=== PATIENT | female | born 2000 | race Caucasian/White ===

== ENCOUNTER 2024-02-07 08:02 | Outpatient (CLI) | payer BC, SELFPAY ==
[2024-02-07 09:20] LABS: Hematocrit 33.4 % (37.0-47.0); Hemoglobin 11.4 g/dL (12.0-15.0)
[2024-02-07 09:31] LABS: Glucose 1 Hour PP 50gm Dose 102 mg/dL
[2024-02-07 10:12] LABS: HIV 1/2 Ab P24 Ag Result Negative (Negative)
[2024-02-07] MEDS: RHO(D) IMMUNE GLOBULIN 300 MCG/2 ML SYRINGE IM (17:30)
== END 2024-02-07 08:03 | disposition home or self-care (01) ==
PROVIDERS: Visit Provider Advanced Practice Midwife
DX: Z36.89 Encounter for other specified antenatal screening (principal)
CPT/HCPCS: 36415; 82947; 85014; 85018; 85461; 86703; 86850; 86900; 86901; 90384; 96372; G0432; J2790

== ENCOUNTER 2024-04-21 06:49 | Inpatient (IN) | payer BC, SELFPAY ==
[2024-04-21] VITALS (124 sets, daily range): BP systolic 99–169; BP diastolic 60–100; PULSE 71–120; RESP 16; TEMP 36.6–37.3; O2SAT 94–100
--- NOTE | 2024-04-21 07:45 | LDADM ---
This patient, Sabrina Lantigua, was admitted to Labor/Delivery/Recovery 106 on 04/21/24 at 06:49. Plans for labor, pain management and were discussed with patient. Patient/family oriented to hospital policies and general routines including ID bracelet, bed and alarms, visiting hours, pain management, procedures, bathroom and other care routines, personal items, smoking policy, room service/diet and guest tray routines, security routines, and visiting hours. Patient/Family are encouraged to report perceived risks to care and to ask questions if they do not understand what they are told or what they should do. See OBIX for further documentation.
[2024-04-21] MEDS: OXYTOCIN 30 UNITS/NS 500 ML 30 UNITS/500 ML BAG 6 UNITS IV CONT (07:54)
[2024-04-21] MEDS: LACTATED RINGERS 1,000 ML 125 ML IV CONT ×2 (07:55→15:28)
[2024-04-21 08:02] LABS: Basophils Percent Auto 0.3 % (0.2-1.2); Eosinophils Absolute Auto 0.1 K/mm3 (0-0.3); Eosinophils Percent Auto 0.8 % (0-4.4); Hematocrit 31.4 % (37.0-47.0); Hemoglobin 10.5 g/dL (12.0-15.0); Immature Granulocyte Absolute 0.06 K/mm3 (0.00-0.031); Immature Granulocyte Percent A 0.6 % (0-0.5); Lymphocytes Absolute Auto 1.63 K/mm3 (0.9-3.2); Lymphocytes Percent Auto 15.2 % (18.3-44.2); Mean Corpuscular HGB Conc 33.4 g/dl (32-36); Mean Corpuscular Hemoglobin 30.9 pg (26-34); Mean Corpuscular Volume 92.4 fl (80-100); Mean Platelet Volume 11.3 fl (7.4-10.4); Monocytes Absolute Auto 0.7 K/mm3 (0.1-0.6); Monocytes Percent Auto 6.2 % (2.6-8.5); Neutrophils Absolute Auto 8.2 K/mm3 (1.3-6.7); Neutrophils Percent Auto 76.9 % (45.5-73.1); Platelet Count Result 194 k/mm3 (150-375); Red Cell Distribution Width 12.7 % (11.5-14.5); White Blood Count 10.7 K/mm3 (4.5-10.0)
[2024-04-21 08:30] LABS: HIV 1/2 Ab P24 Ag Result Negative (Negative)
[2024-04-21 11:30] LABS: Rapid Plasma Reagin Non-Reactive (NonReactive)
--- NOTE | 2024-04-21 17:01 | WPDANESEPP ---
Anes - Eval Pre Procedure Procedure: labor epidural Date/Time: 04/21/24 17:01 Surgeon: jose Preop Diagnosis: pain during labor Pre Op Diagnosis: Labor Patient Data Age: 24 Gender: F Height: Weight: Last Vital Signs Temp 36.8 C 04/21/24 13:51 Pulse 111 H 04/21/24 17:00 BP 118/100 H 04/21/24 17:00 Pulse Ox 100 04/21/24 16:56 O2 Del Method Room Air 04/21/24 07:40 Allergies Allergy/AdvReac Type Severity Reaction Status Date / Time No Known Allergies Allergy Verified 03/28/24 12:32 Home Medications Medication Instructions Recorded Confirmed Type vits no.126-ferrous fum 1 tablet PO DAILY 03/28/24 03/28/24 History 28 mg iron-folic acid 800 mcg tablet (Classic ) Laboratory Tests 04/21/24 07:27 WBC 10.7 H K/mm3 (4.5-10.0) RBC 3.40 L M/mm3 (4.2-5.4) Hgb 10.5 L g/dL (12.0-15.0) Hct 31.4 L % (37.0-47.0) MCV 92.4 fl (80-100) MCH 30.9 pg (26-34) MCHC 33.4 g/dl (32-36) RDW 12.7 % (11.5-14.5) Plt Count 194 k/mm3 (150-375) MPV 11.3 H fl (7.4-10.4) Immature Gran % (Auto) 0.6 H % (0-0.5) Neut % (Auto) 76.9 H % (45.5-73.1) Lymph % (Auto) 15.2 L % (18.3-44.2) [place] % (Auto) 6.2 % (2.6-8.5) Eos % (Auto) 0.8 % (0-4.4) Baso % (Auto) 0.3 % (0.2-1.2) Lymph # (Auto) 1.63 K/mm3 (0.9-3.2) [place] # (Auto) 0.7 H K/mm3 (0.1-0.6) Eos # (Auto) 0.1 K/mm3 (0-0.3) Baso # (Auto) 0.0 K/mm3 (0.0-0.1) Abs Immat Gran (auto) 0.06 H K/mm3 (0.00-0.031) Absolute Neuts (auto) 8.2 H K/mm3 (1.3-6.7) Absolute Nucleated RBC 0.000 K/mm3 (0.0-0.012) Nucleated RBC % 0.0 % (0.0-0.2) RPR Non-reactive (NonReactive) HIV 1&2 Ab/P24 Ag 4thGn Negative (Negative) Blood Type B Negative Antibody Screen Positive Antibody Identification Passive Due to RH Imm Glob Antigen Identification TNP CLINT, IgG Interpret Neg CLINT, Poly Interpret TNP CLINT, Complement Interp Negative Patient hx anesthesia problems: none Family hx anesthesia problems: none Results Review: All pre-operative results and documents have been reviewed as part of the pre-operative evaluation. [facility] Past Medical History Medical History (Updated 04/21/24 @ 17:02 by Kandace Eason CRNA) IUP (intrauterine ), incidental Family History Family History (Updated 03/28/24 @ 12:38 by Daniela Lambert RN) Other No pertinent family history Social History Social History Smoking status: Never smoker Substance use: never Do You Feel Safe in your Home?: Yes Lack of Transportation: No Lack of Food: Never True Current Housing: I Have Housing Concerned About Future Housing: No Difficulty Paying Gas/Electric Bills: No Difficulty Paying for Meds: No Currently Unemployed: No Education: Don't Know Difficulty w/ Childcare or Family Care: No Spiritual care concerns: No Exam Day of Procedure 04/21/24 17:01
--- NOTE | 2024-04-21 19:11 | WPDOBADMIT ---
Obstetrics - Admit Note Admission Note: record reviewed. No pertinent additions to the history and/or any subsequent changes in the physical findings that are not consistent with the expected course of the were found. Additions to the history and/or subsequent changes in the physical findings follow. admit in labor, anticipate vaginal delivery
[2024-04-21] MEDS: fentaNYL CITRATE INJ (*CRX) 100 MCG/2 ML VIAL 50 MCG IV PUSH (21:32)
[2024-04-21] MEDS: OXYTOCIN 30 UNITS/NS 500 ML 30 UNITS/500 ML BAG 125 UNITS IV CONT ×2 (21:33→22:16)
--- NOTE | 2024-04-21 21:48 | PM.OBPRVD ---
OB - Vaginal Delivery Note Procedure Delivery date: 04/21/24 Delivery augmentation: Pitocin Delivery monitor: External FHT and External Uterine Route of delivery: Episiotomy description: None Laceration Description: Perineal - 2nd Degree Delivery repair: vicryl Specimen: No Quantitative Blood Loss (ml): 125 Anesthesia type: Local Disposition: Floor Complications: No immediate complications Baby Date of : 04/21/24 Time of : 21:03 Gestational Age by Date: 39 Infant gender: Male Weight (pounds): 7 Weight (ounces): 8 presentation: vertex position: Left Occiput Anterior Placenta delivery description: Spontaneous Cord Vessel Description: 3 Vessels score one minute: 8 score five minutes: 9
[2024-04-22] MEDS: BENZOCAINE 20% AER SPR (*SP) 56 GM CAN 1 SPRAY TOPICAL (00:06)
[2024-04-22] MEDS: WITCH HAZEL 40 PADS 1 PAD TOPICAL (00:06)
[2024-04-22 03:48] VITALS: BP 124/72; PULSE 96; RESP 16; TEMP 37.4; O2SAT 98
[2024-04-22 05:31] LABS: Hemoglobin 8.7 g/dL (12.0-15.0)
--- NOTE | 2024-04-22 07:12 | OBPPTRN ---
04/22/2024 at 0012 Patient transferred to post room #292. Support person present. Oriented to unit, room, information board, rooming in, admission packet and security measures. Patient verbalizes understanding.
[2024-04-22 08:00] VITALS: BP 117/71; PULSE 97; RESP 16; TEMP 36.8; O2SAT 99
[2024-04-22 08:52] VITALS: BMI 28.3
--- NOTE | 2024-04-22 08:54 | P.PNOB_ITS ---
OB - PN: Subj Subjective Date/time seen: 04/22/24 08:54 Interval history: PPD#1 Doing well, no issues Pain well controlled Planning on pumping, has not yet started; discussed starting pumping schedule and importance of regular emptying OB - PN: Obj Data Labs 04/22/24 05:26 Labs: Laboratory Results - last 24 hr 04/21/24 04/22/24 07:27 05:26 Hgb 8.7 L Hct 26.0 L RPR Non-reactive Blood Type B Negative Antibody Screen Positive Antibody Identification Passive Due to RH Imm Glob Antigen Identification TNP CLINT, IgG Interpret Neg CLINT, Poly Interpret TNP CLINT, Complement Interp Negative OB - PN A/P Assessment and Plan (1) Anemia: Code(s): D64.9 - Anemia, unspecified Status: Acute Assessment and Plan: - Hgb 8.7 this AM - IV venofer x1 ordered - recheck CBC in AM (2) (spontaneous vaginal delivery): Code(s): O80 - Encounter for full-term uncomplicated delivery Status: Acute Plan day: 1 Plan: routine care Time Spent With Patient Time: Total time spent is greater than 50% in coordination of care (as documented) at patient's floor/unit and/or counseling patient: Review of Systems Review of Systems: All systems reviewed & are unremarkable except as noted in HPI and below Exam 2 Const: General: comfortable and no acute distress Orientation/consciousness: patient oriented x3 Resp: Effort & Inspection: normal respiratory effort
[2024-04-22] MEDS: IRON SUCROSE COMPLEX 200 MG in SODIUM CHLORIDE 0.9% IV 100 ML 220 MG IVPB (10:32)
[2024-04-22 12:00] VITALS: BP 115/72; PULSE 98; RESP 18; TEMP 36.4; O2SAT 99
[2024-04-22] MEDS: RHO(D) IMMUNE GLOBULIN 300 MCG/2 ML SYRINGE IM (12:30)
[2024-04-22 12:38] VITALS: BP 115/72; PULSE 98; RESP 18; TEMP 36.4; O2SAT 99
[2024-04-22 16:00] VITALS: BP 127/77; PULSE 92; RESP 18; TEMP 37.4; O2SAT 100
[2024-04-22 18:43] VITALS: BP 110/72; PULSE 100; RESP 16; TEMP 37.1; O2SAT 97
[2024-04-23 06:56] LABS: Basophils Percent Auto 0.3 % (0.2-1.2); Eosinophils Absolute Auto 0.2 K/mm3 (0-0.3); Eosinophils Percent Auto 1.5 % (0-4.4); Hematocrit 28.1 % (37.0-47.0); Hemoglobin 9.1 g/dL (12.0-15.0); Immature Granulocyte Absolute 0.06 K/mm3 (0.00-0.031); Immature Granulocyte Percent A 0.6 % (0-0.5); Lymphocytes Percent Auto 15.5 % (18.3-44.2); Mean Corpuscular HGB Conc 32.4 g/dl (32-36); Mean Corpuscular Hemoglobin 31.3 pg (26-34); Mean Corpuscular Volume 96.6 fl (80-100); Mean Platelet Volume 10.8 fl (7.4-10.4); Monocytes Absolute Auto 0.7 K/mm3 (0.1-0.6); Monocytes Percent Auto 6.6 % (2.6-8.5); Neutrophils Absolute Auto 7.8 K/mm3 (1.3-6.7); Neutrophils Percent Auto 75.5 % (45.5-73.1); Platelet Count Result 162 k/mm3 (150-375); Red Blood Count 2.91 M/mm3 (4.2-5.4); Red Cell Distribution Width 12.9 % (11.5-14.5); White Blood Count 10.3 K/mm3 (4.5-10.0)
--- NOTE | 2024-04-23 07:38 | PM.OBPNVD ---
OB - PN: Subj Subjective Date/time seen: 04/23/24 07:38 Interval history: PPD#2 Doing well, no issues Pain well controlled Planning on pumping, has not yet started; discussed starting pumping schedule and importance of regular emptying OB - PN: Obj Data Labs 04/23/24 06:40 Labs: Laboratory Results - last 24 hr 04/22/24 04/23/24 06:32 06:40 WBC 10.3 H RBC 2.91 L Hgb 9.1 L Hct 28.1 L MCV 96.6 MCH 31.3 MCHC 32.4 RDW 12.9 Plt Count 162 MPV 10.8 H Immature Gran % (Auto) 0.6 H Neut % (Auto) 75.5 H Lymph % (Auto) 15.5 L [place] % (Auto) 6.6 Eos % (Auto) 1.5 Baso % (Auto) 0.3 Lymph # (Auto) 1.60 [place] # (Auto) 0.7 H Eos # (Auto) 0.2 Baso # (Auto) 0.0 Abs Immat Gran (auto) 0.06 H Absolute Neuts (auto) 7.8 H Absolute Nucleated RBC 0.000 Nucleated RBC % 0.0 Blood Type B Negative Antibody Screen TNP Screen Negative Baby's Blood Type B pos Baby's CLINT Negative Doses of RhIg Required 1 OB - PN A/P Plan day: 2 Plan: routine care and discharge home Time Spent With Patient Time: Total time spent is greater than 50% in coordination of care (as documented) at patient's floor/unit and/or counseling patient: Review of Systems Review of Systems: All systems reviewed & are unremarkable except as noted in HPI and below Exam Const: General: cooperative and healthy appearing Resp: Effort & Inspection: normal respiratory effort Cardio: Rate: regular rate Rhythm: regular rhythm Skin: General skin exam: normal color Neuro: General: patient oriented x3 Psych: Appearance: grossly normal
[2024-04-23 07:40] VITALS: BP 108/61; PULSE 99; RESP 16; TEMP 36.5; O2SAT 100
--- NOTE | 2024-04-23 07:40 | PM.OBDSVD ---
DS: Admitting Diagnosis Discharge Date 04/23/24 Admitting Diagnosis labor DS: Discharge Diagnosis Discharge Diagnosis (1) (spontaneous vaginal delivery): Code(s): O80 - Encounter for full-term uncomplicated delivery Status: Acute OB - DS: Summary OB Procedures : None OB Procedures Intrapartum: Spontaneous Vag Delivery OB Procedures: : None Peripartum Data Laceration Description: Perineal - 2nd Degree Episiotomy description: None Time Spent with Patient Time attestation: Total time spent providing and/or coordinating discharge services: DS: Data Data Completed and Pending Labs on day of discharge: Labs from last 24 hours 04/23/24 04/22/24 06:40 06:32 WBC 10.3 H RBC 2.91 L Hgb 9.1 L Hct 28.1 L MCV 96.6 MCH 31.3 MCHC 32.4 RDW 12.9 Plt Count 162 MPV 10.8 H Immature Gran % (Auto) 0.6 H Neut % (Auto) 75.5 H Lymph % (Auto) 15.5 L [place] % (Auto) 6.6 Eos % (Auto) 1.5 Baso % (Auto) 0.3 Lymph # (Auto) 1.60 [place] # (Auto) 0.7 H Eos # (Auto) 0.2 Baso # (Auto) 0.0 Abs Immat Gran (auto) 0.06 H Absolute Neuts (auto) 7.8 H Absolute Nucleated RBC 0.000 Nucleated RBC % 0.0 Blood Type B Negative Antibody Screen TNP Screen Negative Baby's Blood Type B pos Baby's CLINT Negative Doses of RhIg Required 1 Discharge Plan Discharge Attending physician on discharge: Bobby Nichols Discharging Clinician: Demetra Long Patient Disposition: Home, Self-Care Activity: pelvic rest Diet: regular Patient Instructions: Antibiotic Form Stand Alone Forms: General Discharge Information Follow-up/Referrals: Demetra Long, LYDIAM [Certified Nurse Behavioral Consultant] - 4 Weeks Discharge Medications: New ibuprofen 600 mg Tablet 600 mg PO Q6H PRN (Reason: Cramping) Qty: 30 0RF Continued Classic 28 mg iron- 800 mcg Tablet 1 tablet PO DAILY Date of admission: 04/21/24 06:49 Primary Care Provider: UNKNOWN,DOCTOR Admitting Provider: Bobby Nichols Attending physician on admission: Bobby Nichols Condition: Stable
[2024-04-23 08:00] VITALS: PULSE 99; RESP 16; O2SAT 100
--- NOTE | 2024-04-23 09:05 | PC.NURSE ---
Introductions were made, then consulted with patient to assess needs related to . Mother will be pumping and feeding. Breast pump was initiated by Night RN. Patient stated that Night RN gave education regarding pump usage. Patient was assessed for correct placement, flange size, to pump for comfort and nipple stretching/stimulation for adequate milk production every 3 hours (8 times in 24 hours) 1-2 times at night. Parents are encouraged to record the pumping schedule on the feeding sheet.?Mother voiced understanding of the education shared along with mom/baby guide and the pump measurement, flange fit handout for additional resource information. Reported to the Primary RN.
[2024-04-24 10:28] VITALS: BP 125/72; PULSE 81; RESP 18; TEMP 37; O2SAT 100
== END 2024-04-23 12:33 | disposition home or self-care (01) | DRG 807 ==
LOC: ANHLDR 21:14 → ANHOB2 04-22 00:12
PROVIDERS: Obstetrics & Gynecology; Admitting Provider Advanced Practice Midwife; Referring Provider Advanced Practice Midwife; Visit Provider Obstetrics & Gynecology
DX: O70.1 Second degree perineal laceration during delivery (principal); Z37.0 Single live birth; Z3A.39 39 weeks gestation of pregnancy
CPT/HCPCS: 36415; 85014; 85018; 85025; 85461; 86592; 86703; 86850; 86880; 86900; 86901; 90384; A9270; G0432; J1756; J2590; J2790; J3010; J7120